=== PATIENT | male | born 1975 | race Caucasian/White ===

== ENCOUNTER → 2018-07-01 | Day surgery (SDC) | payer MEDICARE, BC ==
[~2018-07-01] MED LIST: ASPIR 8181 MG PO; BUMETADINE PO; CLONIDINE HCL0.3 M3 PO; COREG25 MG PO; ERGOCALCIF50000 UNIT PO; HYDRALAZINE 2525 MG PO; IMDUR 60 MG TAB60 M1 PO; NORCO 5-325 TA1 EACH PO; NORVASC5 MG PO; NOVOLIN 70100 UNIT/1 SUBQ
[2018-07-01 13:32] LABS: ABSOLUTE BASOPHILS 0.1 thou/uL (0.0-0.2); ABSOLUTE EOSINOPHILS 0.1 thou/uL (0.0-0.7); ABSOLUTE LYMPHOCYTES 2.3 thou/uL (0.8-5.3); ABSOLUTE MONOCYTES 0.6 thou/uL (0.0-1.2); ABSOLUTE NEUTROPHILS 4.1 thou/uL (1.6-8.1); BASOPHILS 1.3 %; CALCIUM 8.5 mg/dL (8.5-10.1); CREATININE 3.4 mg/dL (0.6-1.3); EOSINOPHILS 1.7 %; HEMATOCRIT 35.6 % (42.0-52.0); HEMOGLOBIN 12.9 gm/dL (14.0-18.0); LYMPHOCYTES 31.9 %; MCH 32.6 pg (26.0-34.0); MCHC 36.3 g/dL (28.0-37.0); MCV 89.6 fL (80.0-100.0); MONOCYTES 7.8 %; NUCLEATED RBCS 0 /100WBC; PLATELET COUNT* 135 thou/uL (150-400); POLYS 57.3 %; POTASSIUM 4.2 mmol/L (3.5-5.1); RBC 3.98 mil/uL (4.50-6.00); RDW-CV 13.4 % (10.5-14.5); WBC 7.2 thou/uL (4.0-11.0)
--- NOTE | 2018-07-01 15:20 | EKG ---
[place] [address] ELECTROCARDIOGRAM REPORT Name: LEIGHBEKA Room: [facility].#: [id number] Admission: 07/01/18 Attend Phys: Thomas Vu Discharge: Date of : 75 Report #: [id number] THIS REPORT FOR: //name// [facility] Test Date: 2018-07-01 Test Time: 13:20:48 Pat Name: BEKA ABRAHAM Department: Room: Gender: Defect Cutter: : 1975 Requested By: Mario Madrigal Order Number: [id number] Beatriz MD: Sabino Ospina Measurements Intervals [place] Rate: 82 P: 13 KS: 152 QRS: 101 QRSD: 158 T: -11 QT: 418 QTc: 489 Interpretive Statements Sinus rhythm Right bundle branch block No previous ECG available for comparison Electronically Signed On 07-01-2018 15:19:46 CDT by Sabino Ospina [email or web address] <ELECTRONICALLY SIGNED> By: Sabino Ospina MD, [facility] 07/01/18 1519 1320 1320 Sabino Ospina MD, FACC /EPI
--- NOTE | 2018-07-17 12:29 | OP ---
[address] [address] OPERATIVE REPORT Name: BEKA ABRAHAM Room: [facility]#: [id number] Admission: 07/01/18 Attend Phys: Thomas Vu Discharge: Date of : 75 Report #: [id number] THIS REPORT FOR: //name// CC: Mario Bella DATE OF SERVICE: 07/01/2018 PREOPERATIVE DIAGNOSIS: End-stage renal disease, requiring hemodialysis with poorly-maturing arteriovenous fistula. POSTOPERATIVE DIAGNOSIS: End-stage renal disease, requiring hemodialysis with poorly-maturing arteriovenous fistula. SURGEON: Mario Madrigal DO. LEARNING SOLUTIONS SPECIALIST: None. PROCEDURE: Revision of right upper extremity radiocephalic AV fistula with ligation of competing venous branches. ESTIMATED BLOOD LOSS: 20 mL. SPECIMEN: None. COMPLICATIONS: None. CONDITION: Stable. DISPOSITION: Home. INDICATIONS FOR THE PROCEDURE AND CONSENT: The patient is a 42-year-old male with end-stage renal disease requiring hemodialysis. He underwent radiocephalic fistula which has been maturing and it is large; however, it has been difficult to access due to a large competing venous branches, which are also causing some extremity edema. He had a fistulogram by Dr. Robles which demonstrated these findings and he was referred for revision with ligation of competing branches. Risks and benefits of this procedure were discussed with the patient including infection, bleeding, damage to the fistula, need for additional revision, nerve injury, steal syndrome, stroke, heart attack and . The patient wished to proceed, was consented and scheduled. PROCEDURE IN DETAIL: After timeout was performed, the patient was placed in supine position with sterile prep and drape of the right upper extremity. Ultrasound was utilized to interrogate the fistula and both large and small venous branches were identified and marked on the skin. [place] [address] OPERATIVE REPORT Name: BEKA ABRAHAM Room: [facility]#: [id number] Admission: 07/01/18 Attend Phys: Thomas Vu Discharge: Date of : 75 Report #: [id number] branch point just prior to the antecubital vein that appeared to be supplying more outflow than really a competitive flow. So three areas were identified to have major branching and they were likely affecting fistula flow. Lidocaine was injected in these areas and a 15 blade scalpel was used to make an incision. Dissection carried down with Bovie electrocautery and Metzenbaum scissors sharply. Branches were identified and using both Doppler and ultrasound confirmed to be side channels and not the main cephalic vein, I then ligated with 2-0 silk sutures or Hemoclips as appropriate. This was done to all 3 areas and once complete, was interrogated with Doppler. The vein was occluded distally and it was noted to have an obstructing flow without any additional venous hum that would be suggestive of any additional branches that were missed. Each wound was then irrigated and closed in layers using 2-0 Vicryl and 4-0 Monocryl suture and Dermabond dressing was applied. The patient tolerated the procedure well. Lap, needle, instrument counts were correct. The patient had an excellent thrill at the end of the procedure. The patient was transferred to PACU in stable condition. <ELECTRONICALLY SIGNED> By: Mario Madrigal DO 07/17/18 1229 1733 1758Mario Madrigal DO /nt
== END | disposition home or self-care (01) ==
LOC: M.SUR 06:56
PROVIDERS: Surgery
DX: T82.590A Other mechanical complication of surgically created arteriovenous fistula, initial encounter (principal); N18.6 End stage renal disease; Z79.82 Long term (current) use of aspirin; Z79.899 Other long term (current) drug therapy; Z98.890 Other specified postprocedural states; Y83.8 Other surgical procedures as the cause of abnormal reaction of the patient, or of later complication, without mention of misadventure at the time of the procedure